=== PATIENT | female | born 1970 | race Caucasian/White ===

== ENCOUNTER 2017-01-13 13:30 | Observation (INO) | payer MEDICAID, OTHER ==
[2017-01-13] VITALS (8 sets, daily range): BP systolic 110–123; BP diastolic 63–78; PULSE 59–65; RESP 16–20; TEMP 98.1–98.6; O2SAT 97–99
[~2017-01-13] VITALS: Ht 165.1 cm; Wt 76.3 kg
[~2017-01-13 13:30] MED LIST: COUM10TA PO; NAPR500 PO
[2017-01-13] MEDS ORDERED: SODIUM CHLORIDE 0.9% FLUSH 5 ML FLUSH IVF PRN ×2 (14:45→17:30)
[2017-01-13] MEDS ORDERED: SODIUM CHLORID 0.9% 500 ML INJ 500 ML IV ONE (14:45)
--- NOTE | 2017-01-13 14:53 | PD ---
HPI Chief Complaint: Musculoskeletal Complaint Time Seen by Provider: 14:21 Travel History International Travel<30 days: No Contact w/Intl Traveler<30days: No Traveled to known affect area: No History of Present Illness HPI Patient is a 46-year-old female with history of multiple PEs, history of third- degree heart block with a pacemaker in place, presents to emergency room with complaints of chest pain as well as left-sided rib pain and shortness of breath. Patient reports that for the past week, she has had increased pains to the left side of her ribs. Reports that she has SOB with her symptoms and reports that pain radiates to the front of her chest. Reports that her symptoms are similar to when she was diagnosed with pulmonary embolism in the past. Reports that she has also been having chest pain, reports that she is having sharp stabbing pain to left side of her breast. Patient reports "i think that i have a pulmonary embolis" Patient reports that she is supposed to be taking coumadin as she has had 3 pe's in the past (last PE was diagnosed 1.5 years ago). Patient reports that she stopped taking her Coumadin as it is made from "rat poisen and i'm afraid of it." Patient currently reports that she does not have a primary care doctor or manager asset management in this area, reports that she is visiting from [place] (lives in [facility] now), she previously saw Dr. Eduardo in the past whom she absolutely loved. Reports that she knows that she has to find a manager asset management to follow up with. PFSH Past Medical History Anemia: Yes Arthritis: Yes Asthma: No Autoimmune Disease: No Blood Disorders: Yes (PE) Anxiety: Yes Depression: No Heart Rhythm Problems: Yes Cancer: No Cardiac Catheterization: Yes Cardiovascular Problems: Yes (PACER) High Cholesterol: Yes (NEVER DIAGNOSED) Chemotherapy: No Chest Pain: Yes Congestive Heart Failure: No COPD: No Diabetes: No Diminished Hearing: No Endocrine: Yes Gastrointestinal Disorders: Yes (BLOODY STOOLS; ACID REFLUX ) GERD: Yes Genitourinary: No Headaches: Yes Hepatitis: No Hiatal Hernia: No Hypertension: No Immune Disorder: No Implanted Vascular Access Dvce: Yes (PACEMAKER) Kidney Stones: No Medical other: Yes (BLOOD CLOTTING DISORDER (MULTIPLE EPISODES) ) Musculoskeletal: Yes (LOW BACK & NECK PAIN ) Neurologic: No Psychiatric: Yes (ANXIETY & DEPRESSION ) Reproductive: No Respiratory: Yes (ASTHMA) Immunizations Current: Yes Migraines: Yes Myocardial Infarction: Yes (X 2) Radiation Therapy: No Renal Failure: No Sleep Apnea: Yes Thyroid Disease: Yes Ulcer: No ?: Not LMP: MAGGIE Menopausal: Yes : 8 Para: 5 Miscarriage: 0 : 3 Tubal Ligation: Yes Past Surgical History Abdominal Surgery: No AICD: No Arteriovenous Shunt: No Body Medical Devices: PACEMAKER Cardiac Surgery: Yes (PACEMAKER X 3, 3RD DEGREE HEART BLOCK, HEART SURGERYX5) Section: Yes (X 1) Ear Surgery: No Endocrine Surgery: No Eye Surgery: No Genitourinary Surgery: Yes Gynecologic Surgery: Yes () Insulin Pump: No Joint Replacement: No Neurologic Surgery: No Oral Surgery: No Pacemaker: Yes Thoracic Surgery: No Other Surgery: Yes Social History Alcohol Use: Yes (3X WEEKLY) Tobacco Use: No Substance Use: Yes (SANDRA ) Allergies-Medications (Allergen,Severity, Reaction): Coded Allergies: No Known Allergies (Unverified , 01/13/17) Reported Meds & Prescriptions Reported Meds & Active Scripts Active No Active Prescriptions or Reported Medications Physical Exam Narrative GENERAL: nad, nontoxic SKIN: Warm and dry. HEAD: Atraumatic. Normocephalic. EYES: Pupils equal and round. No scleral icterus. No injection or drainage. ENT: No nasal bleeding or discharge. Mucous membranes pink and moist. NECK: Trachea midline. No JVD. CARDIOVASCULAR: Regular rate and rhythm. No murmur appreciated. RESPIRATORY: No accessory muscle use. Clear to auscultation. Breath sounds equal bilaterally. GASTROINTESTINAL: Abdomen soft, non-tender, nondistended. Hepatic and splenic margins not palpable. MUSCULOSKELETAL: No obvious deformities. No clubbing. No cyanosis. No edema. NEUROLOGICAL: Awake and alert. No obvious cranial nerve deficits. Motor grossly within normal limits. Normal speech. PSYCHIATRIC: Appropriate mood and affect; insight and judgment normal. Data Data Last Documented VS Vital Signs Date Time Temp Pulse Resp B/P Pulse Ox O2 Delivery O2 Flow Rate FiO2 01/13/17 13:55 18 99 Room Air 01/13/17 13:55 60 01/13/17 13:41 98.6 116/63 Orders Electrocardiogram (01/13/17 14:40) B-Type Natriuretic Peptide (01/13/17 14:40) Ckmb (Isoenzyme) Profile (01/13/17 14:40) Complete Blood Count With Diff (01/13/17 14:40) Comprehensive Metabolic Panel (01/13/17 14:40) Prothrombin Time / Inr (Pt) (01/13/17 14:40) Act Partial Throm Time (Ptt) (01/13/17 14:40) Troponin I (01/13/17 14:40) Chest, Single Ap (01/13/17 14:40) Ecg Monitoring (01/13/17 14:40) Iv Access Insert/Monitor (01/13/17 14:40) Oximetry (01/13/17 14:40) Sodium Chloride 0.9% Flush (Ns Flush) (01/13/17 14:45) Sodium Chlorid 0.9% 500 Ml Inj (Ns 500 M (01/13/17 14:45) Ct Pulmonary Angiogram (01/13/17 14:40) Ed Urine Pregnancytest Poc (01/13/17 14:40) Labs Laboratory Tests Test 01/13/17 14:25 White Blood Count 6.4 TH/MM3 Red Blood Count 4.34 MIL/MM3 Hemoglobin 13.1 GM/DL Hematocrit 39.9 % Mean Corpuscular Volume 92.0 FL Mean Corpuscular Hemoglobin 30.1 PG Mean Corpuscular Hemoglobin 32.7 % Concent Red Cell Distribution Width 13.9 % Platelet Count 255 TH/MM3 Mean Platelet Volume 8.9 FL Neutrophils (%) (Auto) 59.6 % Lymphocytes (%) (Auto) 30.3 % Monocytes (%) (Auto) 6.7 % Eosinophils (%) (Auto) 2.8 % Basophils (%) (Auto) 0.6 % Neutrophils # (Auto) 3.8 TH/MM3 Lymphocytes # (Auto) 2.0 TH/MM3 Monocytes # (Auto) 0.4 TH/MM3 Eosinophils # (Auto) 0.2 TH/MM3 Basophils # (Auto) 0.0 TH/MM3 CBC Comment DIFF FINAL Differential Comment Prothrombin Time 10.5 SEC Prothromb Time International 1.0 RATIO Ratio Activated Partial 25.7 SEC Thromboplast Time Sodium Level 139 MEQ/L Potassium Level 4.1 MEQ/L Chloride Level 104 MEQ/L Carbon Dioxide Level 28.2 MEQ/L Anion Gap 7 MEQ/L Blood Urea Nitrogen 14 MG/DL Creatinine 0.64 MG/DL Estimat Glomerular Filtration 99 ML/MIN Rate Random Glucose 92 MG/DL Calcium Level 8.8 MG/DL Total Bilirubin 0.9 MG/DL Aspartate Amino Transf 14 U/L (AST/SGOT) Alanine Aminotransferase 15 U/L (ALT/SGPT) Total Protein 7.5 GM/DL Albumin 3.6 GM/DL MDM Medical Decision Making Medical Screen Exam Complete: Yes Emergency Medical Condition: Yes Interpretation(s) ekg at 1452: av paced at 60bpm, qt/qtc: 472/472 Vital Signs Date Time Temp Pulse Resp B/P Pulse Ox O2 Delivery O2 Flow Rate FiO2 01/13/17 13:55 60 18 01/13/17 13:41 98.6 63 16 116/63 99 Differential Diagnosis ACS, arrhythmia, PE, electrolyte abnormality, pneumothorax Narrative Course Patient is a 46-year-old female who presents to emergency room with complaints of left-sided rib pain or shortness of breath for the past week. Patient reports that she has history of multiple pulmonary emboli, that she is supposed to be on anticoagulation - warfarin specifically-reports that she stop this medication 6 months ago as she found out that was made out of rat poisoning. Patient reports that she did not inform her primary care doctor or manager asset management about this, she just stopped this on her own. Reports that her symptoms feel very similar to when she's had a pulmonary embolism in the past. Patient is concerned that she may have a PE given her history and given the fact that she is not on anticoagulation - PE study ordered. Patient also with pleuritic chest pain at this time, EKG ordered. Scripts No Active Prescriptions or Reported Meds Pia Cruz DO Jan 13, 2017 14:53
[2017-01-13 14:58] LABS: AUTOMATED NEUTROPHIL # 3.8 TH/MM3 (1.8-7.7); BASOPHIL % 0.6 % (0.0-2.0); EOSINOPHIL # 0.2 TH/MM3 (0-0.4); EOSINOPHIL % 2.8 % (0.0-4.0); HEMATOCRIT 39.9 % (35.0-46.0); HEMO FLAGS DIFF FINAL; LYMPH % 30.3 % (9.0-44.0); MEAN CORPUSCULAR HEMOGLOBIN 30.1 PG (27.0-34.0); MEAN CORPUSCULAR HGB CONC 32.7 % (32.0-36.0); MONO % 6.7 % (0.0-8.0); NEUT % 59.6 % (16.0-70.0); PLATELET COUNT 255 TH/MM3 (150-450); RED BLOOD COUNT 4.34 MIL/MM3 (4.00-5.30); RED CELL DISTRIBUTION WIDTH 13.9 % (11.6-17.2); WHITE BLOOD COUNT 6.4 TH/MM3 (4.0-11.0)
[2017-01-13 15:09] LABS: CHLORIDE 104 MEQ/L (98-107); POTASSIUM 4.1 MEQ/L (3.5-5.1); SODIUM (NA) 139 MEQ/L (136-145)
[2017-01-13 15:13] LABS: ANION GAP 7 MEQ/L (5-15); APTT (PATIENT) 25.7 SEC (24.3-30.1); BICARBONATE 28.2 MEQ/L (21.0-32.0); BLOOD UREA NITROGEN 14 MG/DL (7-18); PROTHROMBIN TIME - PATIENT 10.5 SEC (9.8-11.6)
[2017-01-13 15:16] LABS: ALT (GPT) 15 U/L (10-53); AST (GOT) 14 U/L (15-37); GLOMERULAR FILTRATION RATE 99 ML/MIN (>89)
[2017-01-13 15:18] LABS: TOTAL BILIRUBIN ADULT 0.9 MG/DL (0.2-1.0)
[2017-01-13 15:19] LABS: ALKALINE PHOSPHATASE 78 U/L (45-117)
[2017-01-13 15:24] LABS: CREATINE KINASE 67 U/L (26-192)
--- NOTE | 2017-01-13 15:29 | RADHPO ---
EXAM DATE/TIME: 01/13/2017 15:09 [facility] COMPARISON: CHEST SINGLE AP, April 13, 2015, 1:13. INDICATIONS : Chest pain. MEDICAL HISTORY : None. SURGICAL HISTORY : Pacemaker. ENCOUNTER: Initial ACUITY: 1 week PAIN SCORE: 4/10 LOCATION: Bilateral chest FINDINGS: A single view of the chest demonstrates the lungs to be symmetrically aerated without evidence of mas s, infiltrate or effusion. The cardiomediastinal contours are unremarkable. The left subclavian AV s equential transvenous pacer remains in place. Osseous structures are intact. CONCLUSION: No acute disease. Celestine Christian MD on January 13, 2017 at 15:27 Board Certified Radiologist. This report was verified electronically.
[2017-01-13] MEDS ORDERED: IOHEXOL 350 MG/ML 10 ML VIAL (for RAD DIAG) IV ONE (16:33)
--- NOTE | 2017-01-13 16:52 | RADHPO ---
EXAM DATE/TIME: 01/13/2017 16:17 [facility] COMPARISON: CT PULMONARY ANGIOGRAM, July 19, 2014, 10:47. INDICATIONS : Shortness of breath, dizziness for three days. IV CONTRAST: 65 cc Omnipaque 350 IV RADIATION DOSE: 10.26 CTDIvol (mGy) MEDICAL HISTORY : Myocardial infarction. Pulmonary embolism. SURGICAL HISTORY : Tubal ligation. Pacemaker. ENCOUNTER: Initial ACUITY: 3 days PAIN SCALE: 10/10 LOCATION: Bilateral chest TECHNIQUE: Volumetric scanning of the chest was performed using a pulmonary embolism protocol MIP images were re constructed. Using automated exposure control and adjustment of the mA and/or kV according to patien t size, radiation dose was kept as low as reasonably achievable to obtain optimal diagnostic quality images. FINDINGS: PULMONARY ARTERIES: No filling defects are seen in the pulmonary arteries through the segmental level. LUNGS: There is no consolidation or pneumothorax . No concerning pulmonary nodule is visualized. There is m ild scarring in the right lung base. PLEURAE: There is no pleural thickening or pleural effusion. MEDIASTINUM: There is good visualization of the great vessels of the middle mediastinum. No evidence of mediastin al or hilar adenopathy/mass. MUSCULOSKELETAL: Within normal limits for patient age. MISCELLANEOUS: The visualized upper abdominal organs demonstrate no acute abnormality. A left transvenous pacer is n oted. CONCLUSION: 1. No evidence of pulmonary embolism. 2. Mild scarring at the right lung base. Celestine Christian MD on January 13, 2017 at 16:49 Board Certified Radiologist. This report was verified electronically.
[2017-01-13] MEDS ORDERED: ONDANSETRON HCL 4 MG/2 ML VIAL IV PUSH ONE (17:00)
--- NOTE | 2017-01-13 17:14 | PD ---
Data Data Last Documented VS Vital Signs Date Time Temp Pulse Resp B/P Pulse Ox O2 Delivery O2 Flow Rate FiO2 01/13/17 16:14 60 18 110/65 97 Room Air 01/13/17 13:41 98.6 Orders Electrocardiogram (01/13/17 14:40) B-Type Natriuretic Peptide (01/13/17 14:40) Ckmb (Isoenzyme) Profile (01/13/17 14:40) Complete Blood Count With Diff (01/13/17 14:40) Comprehensive Metabolic Panel (01/13/17 14:40) Prothrombin Time / Inr (Pt) (01/13/17 14:40) Act Partial Throm Time (Ptt) (01/13/17 14:40) Troponin I (01/13/17 14:40) Chest, Single Ap (01/13/17 14:40) Ecg Monitoring (01/13/17 14:40) Iv Access Insert/Monitor (01/13/17 14:40) Oximetry (01/13/17 14:40) Sodium Chloride 0.9% Flush (Ns Flush) (01/13/17 14:45) Sodium Chlorid 0.9% 500 Ml Inj (Ns 500 M (01/13/17 14:45) Ct Pulmonary Angiogram (01/13/17 14:40) Iohexol 350 Inj (Omnipaque 350 Inj) (01/13/17 16:33) Ondansetron Inj (Zofran Inj) (01/13/17 17:00) Salicylates (Aspirin) (01/13/17 17:07) Place In Observation (01/13/17 17:22) Activity Bed Rest With Brp (01/13/17 17:22) Vital Signs (Adult) Q4H (01/13/17 17:22) Cardiac Rhythm .As Directed (01/13/17 17:22) ^ Notify Dr: Other .PRN (01/13/17 17:22) ^ Notify Dr. Parameters (01/13/17 17:22) Resp Oxygen Nasal Cannula (01/13/17 ) Diet Heart Healthy (01/13/17 Dinner) Ckmb (Isoenzyme) Profile (01/13/17 17:30) Ckmb (Isoenzyme) Profile (01/13/17 20:30) Troponin I (01/13/17 17:30) Troponin I (01/13/17 20:30) Electrocardiogram (01/13/17 17:30) Electrocardiogram (01/13/17 20:30) ^ Obtain (01/13/17 17:22) Sodium Chloride 0.9% Flush (Ns Flush) (01/13/17 17:30) Sodium Chloride 0.9% Flush (Ns Flush) (01/13/17 21:00) Acetaminophen (Tylenol) (01/13/17 17:30) Acetamin-Hydrocod 325-7.5 Mg ([place] 7.5 (01/13/17 17:30) Morphine Inj (Morphine Inj) (01/13/17 17:30) Ondansetron Inj (Zofran Inj) (01/13/17 17:30) Nitroglycerin Sl (Nitrostat Sl) (01/13/17 17:30) Aspirin (Aspirin) (01/14/17 09:00) Temazepam (Restoril) (01/13/17 17:30) Industrial Electrician Journeyman / Telemetry JACKELINE.Q8H (01/13/17 17:22) Enoxaparin Inj (Lovenox Inj) (01/13/17 18:00) Npo After Midnight W/ Po Meds (01/14/17 Breakfast) Admit Order (Ed Use Only) (01/13/17 ) Labs Laboratory Tests Test 01/13/17 01/13/17 14:25 17:33 White Blood Count 6.4 TH/MM3 Red Blood Count 4.34 MIL/MM3 Hemoglobin 13.1 GM/DL Hematocrit 39.9 % Mean Corpuscular Volume 92.0 FL Mean Corpuscular Hemoglobin 30.1 PG Mean Corpuscular Hemoglobin 32.7 % Concent Red Cell Distribution Width 13.9 % Platelet Count 255 TH/MM3 Mean Platelet Volume 8.9 FL Neutrophils (%) (Auto) 59.6 % Lymphocytes (%) (Auto) 30.3 % Monocytes (%) (Auto) 6.7 % Eosinophils (%) (Auto) 2.8 % Basophils (%) (Auto) 0.6 % Neutrophils # (Auto) 3.8 TH/MM3 Lymphocytes # (Auto) 2.0 TH/MM3 Monocytes # (Auto) 0.4 TH/MM3 Eosinophils # (Auto) 0.2 TH/MM3 Basophils # (Auto) 0.0 TH/MM3 CBC Comment DIFF FINAL Differential Comment Prothrombin Time 10.5 SEC Prothromb Time International 1.0 RATIO Ratio Activated Partial 25.7 SEC Thromboplast Time Sodium Level 139 MEQ/L Potassium Level 4.1 MEQ/L Chloride Level 104 MEQ/L Carbon Dioxide Level 28.2 MEQ/L Anion Gap 7 MEQ/L Blood Urea Nitrogen 14 MG/DL Creatinine 0.64 MG/DL Estimat Glomerular Filtration 99 ML/MIN Rate Random Glucose 92 MG/DL Calcium Level 8.8 MG/DL Total Bilirubin 0.9 MG/DL Aspartate Amino Transf 14 U/L (AST/SGOT) Alanine Aminotransferase 15 U/L (ALT/SGPT) Alkaline Phosphatase 78 U/L Total Creatine Kinase 67 U/L Troponin I 0.02 NG/ML B-Type Natriuretic Peptide 107 PG/ML Total Protein 7.5 GM/DL Albumin 3.6 GM/DL Salicylates Level LESS THAN 1.7 MG/DL MDM Supervised Visit with PRATIBHA: No Interpretation(s) EKG shows atrial and ventricular paced rhythm. Narrative Course Patient care assumed from Dr. Cruz at 1900, this is a 38-year-old female with a history of recurrent PEs, third-degree heart block with an AV pacemaker in place as well as NE in the past presents emergency Department with left-sided chest pain now radiating to her back with some mild nauseating symptoms. Patient has not followed a photo finish photographer for some time, she has not had a stress test or cardiac catheterization in many years according to her. Patient states that her symptoms are worsened when she pushes on it. After discussed with Dr. Cruz we were awaiting a PE study and if negative plan was for chest pain center. Patient's CT PE protocol is negative, troponin negative, patient seen and examined by me she does have no reproducible symptoms for me. Pulses motor and sensory intact in all 4 extremities, no murmurs gallops or rubs. EKG reviewed and does show an AV paced rhythm. Awaiting [facility] call back for admission. Diagnosis Primary Impression: Chest pain Qualified Code: R07.9 - Chest pain, unspecified type Admitting Information Admitting Physician Requests: Observation Scripts No Active Prescriptions or Reported Meds Condition: Stable Ismael Wright MD Jan 13, 2017 17:14
[2017-01-13] MEDS ORDERED: ONDANSETRON HCL 4 MG/2 ML VIAL IV PRN (17:30)
[2017-01-13] MEDS ORDERED: MORPHINE SULFATE 4 MG/ML INJ IV PRN (17:30)
[2017-01-13] MEDS ORDERED: TEMAZEPAM 15 MG CAP PO PRN (17:30)
[2017-01-13] MEDS ORDERED: NITROGLYCERIN 0.4 MG SL 25 TABS/BTL SL PRN (17:30)
[2017-01-13] MEDS ORDERED: ACETAMINOPHEN 500 MG CPLT PO PRN (17:30)
[2017-01-13] MEDS ORDERED: ACETAMINOPHEN/HYDROcodone 325 MG/7.5 MG TAB PO PRN (17:30)
[2017-01-13] MEDS ORDERED: ENOXAPARIN SODIUM 40 MG/0.4 ML SYRINGE SQ SCH (18:00)
[2017-01-13] MEDS: SODIUM CHLORIDE 0.9% FLUSH 5 ML FLUSH IVF SCH (22:26)
[2017-01-14] VITALS: BP 120/82; PULSE 61; RESP 20; TEMP 96; O2SAT 98
[2017-01-14 04:00] VITALS: BP 103/67; PULSE 60; RESP 20; TEMP 96.2; O2SAT 100
[2017-01-14 07:05] VITALS: PULSE 59
--- NOTE | 2017-01-14 07:22 | HHI.HP ---
[facility] Service [facility] Primary Care Physician No Primary Care Physician Admission Diagnosis Chest pain. Diagnoses: (1) Chest pain Diagnosis: Principal (2) History of third degree heart block Diagnosis: Secondary (3) History of myocardial infarction Diagnosis: Secondary (4) History of pulmonary embolism Diagnosis: Secondary (5) Hypothyroidism Diagnosis: Secondary Chief Complaint: Chest pain Travel History International Travel<30 Days: No Contact w/Intl Traveler <30 Da: No Traveled to Known Affected Are: No History of Present Illness 46-year-old female with rather complex cardiac history with history of myocardial infarction, cardiac catheterizations, third-degree heart block with pacemaker, history of recurrent pulmonary emboli who presented with atypical chest/left lateral rib pain. Patient presented to the hospital with few day history of constant pain in her left lateral rib cage. She denies any radiation to neck, back, shoulder, arms. She denies any nausea, vomiting. She states that she does get some pain on inspiration in the left lateral ribs. She states that she has had some increased sweating at night, not associated with the chest pain. Patient has not followed up with any medical doctor at least a year and a half. Patient has moved to [place] and returned to [place] to clean out her storage unit which she has been doing for the last couple weeks. She has been doing some increased physical activity and developed pain in her left lateral ribs. Patient used to follow with Dr. Jordan, for cardiology and pulmonary emboli, however she quit taking the Coumadin because it was rat poison. She has not been on any anticoagulation at least 1-1 /2 years. She is not taking any thyroid medication because she has not had any refills. She has not followed up with any physician in [place]. She states that she does have [place] insurance at this time. She plans on being here in [place] until at least February and then she plans on going back to [place]. Review of Systems Constitutional: COMPLAINS OF: Diaphoretic episodes (at night, not associated with chest pain), DENIES: Fatigue, Fever, Weight gain, Weight loss, Chills, Dizziness, Change in appetite, Night Sweats Eyes: DENIES: Blurred vision, Diplopia, Eye inflammation, Eye pain, Vision loss , Double Vision Ears, nose, mouth, throat: DENIES: Vertigo, Nasal discharge, Throat pain, Ear Pain, Running Nose, Sinus Pain Respiratory: COMPLAINS OF: Shortness of breath, DENIES: Apneas, Cough, Snoring , Wheezing, Hemoptysis, Sputum production Cardiovascular: COMPLAINS OF: Chest pain, DENIES: Palpitations, Syncope, Dyspnea on Exertion, Lower Extremity Edema, Orthopnea Gastrointestinal: DENIES: Abdominal pain, Black stools, Bloody stools, Constipation, Diarrhea, Nausea, Vomiting, Difficulty Swallowing, Anorexia Neurologic: DENIES: Abnormal gait, Headache, Localized weakness, Paresthesias, Speech Problems, Tremor, Poor Balance Past Family Social History Past Medical History History myocardial infarction in sinus third-degree heart block Hypothyroidism History of recurrent pulmonary emboli History DVT upper extremity Past Surgical History Pacemaker 3 Cardiac catheterization Tubal ligation Reported Medications Reported Meds & Active Scripts Active No Active Prescriptions or Reported Medications Allergies: Coded Allergies: *MDRO Multi-Drug Resistant Organism (Verified Adverse Reaction, Unknown, MRSA, 01/14/17) MRSA (thigh wound) - 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/05 Family History Significant for heart disease and diabetes Social History Patient states that she has never smoked, does drink alcohol occasionally, denies any illicit drugs Physical Exam Vital Signs Vital Signs Date Time Temp Pulse Resp B/P Pulse Ox O2 Delivery O2 Flow Rate FiO2 01/14/17 04:00 96.2 60 20 103/67 100 01/14/17 00:00 96.0 61 20 120/82 98 01/13/17 20:00 98.1 65 20 114/72 97 01/13/17 19:44 97 01/13/17 17:59 97 21 01/13/17 17:45 59 16 123/78 97 Room Air 01/13/17 16:14 60 18 110/65 97 Room Air 01/13/17 15:05 61 18 115/68 97 Room Air 01/13/17 13:55 18 99 Room Air 01/13/17 13:55 60 18 01/13/17 13:41 98.6 63 16 116/63 99 Physical Exam GENERAL: Well-developed, well-nourished, in no acute distress. alert and orientated HEENT: Head is normocephalic without any lesions or masses noted. Facial features are symmetric. Eyes: Pupils equal round reactive to light. Extraocular muscles are intact. Conjunctivae were clear. Oropharyngeal: Pharynx without any erythema edema. Tongue is midline without deviation. Buccal mucosa is moist without any masses or lesions NECK: Supple without any masses. Trachea midline no deviation. No JVD, no bruits are appreciated CARDIAC: Regular rhythm, regular rate. S1/S2 are heard. No murmurs gallops or rubs. Palpable tenderness noted over left lateral rib cage LUNGS: Clear to auscultation bilaterally. No wheeze, rhonchi or rales. No use of accessory muscles on inspiration or expiration. ABDOMEN: Soft, nontender. Nondistended. Bowel sounds heard in all 4 quadrants. No organomegaly or masses. Negative rebound, negative guarding EXTREMITIES: No edema, pulses are equal bilaterally. No cyanosis or clubbing NEUROLOGY: Mood and affect appear appropriate. Cranial nerves II through XII grossly intact. Muscle strength 5/5 in upper and lower extremities bilaterally. Deep tendon reflexes are 2+ in upper and lower extremities bilaterally. Laboratory Laboratory Tests Test 01/13/17 01/13/17 01/13/17 01/13/17 14:25 17:33 17:48 20:55 White Blood Count 6.4 Red Blood Count 4.34 Hemoglobin 13.1 Hematocrit 39.9 Mean Corpuscular Volume 92.0 Mean Corpuscular Hemoglobin 30.1 Mean Corpuscular Hemoglobin 32.7 Concent Red Cell Distribution Width 13.9 Platelet Count 255 Mean Platelet Volume 8.9 Neutrophils (%) (Auto) 59.6 Lymphocytes (%) (Auto) 30.3 Monocytes (%) (Auto) 6.7 Eosinophils (%) (Auto) 2.8 Basophils (%) (Auto) 0.6 Neutrophils # (Auto) 3.8 Lymphocytes # (Auto) 2.0 Monocytes # (Auto) 0.4 Eosinophils # (Auto) 0.2 Basophils # (Auto) 0.0 CBC Comment DIFF FINAL Differential Comment Prothrombin Time 10.5 Prothromb Time International 1.0 Ratio Activated Partial 25.7 Thromboplast Time Sodium Level 139 Potassium Level 4.1 Chloride Level 104 Carbon Dioxide Level 28.2 Anion Gap 7 Blood Urea Nitrogen 14 Creatinine 0.64 Estimat Glomerular Filtration 99 Rate Random Glucose 92 Calcium Level 8.8 Total Bilirubin 0.9 Aspartate Amino Transf 14 (AST/SGOT) Alanine Aminotransferase 15 (ALT/SGPT) Alkaline Phosphatase 78 Total Creatine Kinase 67 51 49 Troponin I 0.02 0.03 0.03 B-Type Natriuretic Peptide 107 Total Protein 7.5 Albumin 3.6 Salicylates Level LESS THAN 1.7 Result Diagram: 01/13/17 1425 01/13/17 1425 Imaging Last Impressions Chest X-Ray 01/13/17 1440 Signed Impressions: Service Date/Time: Friday, January 13, 2017 15:09 - CONCLUSION: No acute disease. Celestine Christian MD CT Angiography 01/13/17 1440 Signed Impressions: Service Date/Time: Friday, January 13, 2017 16:17 - CONCLUSION: 1. No evidence of pulmonary embolism. 2. Mild scarring at the right lung base. Celestine Christian MD Assessment and Plan Assessment and Plan Atypical chest pain. Likely costochondritis/intercostitis of the left lateral rib cage Patient does have risk factors to include history of myocardial infarction, complete heart block, recurrent pulmonary emboli, family history of heart disease. Serial cardiac enzymes were performed and reviewed by us of which remained negative. Patient ruled out for an acute coronary event Serial EKGs were performed and reviewed by myself which indicate AV sequential pacemaker rhythm without any changes Obtain urinalysis to rule out urinary tract infection/pyelonephritis Nuclear stress test was performed and did not indicate any underlying ischemia Continue aspirin and nitroglycerin as needed History of Recurrent pulmonary emboli, upper extremity DVT. Pulmonary angiogram does not indicate any pulmonary emboli at this time Patient is not on any anticoagulation next linecounseled patient on anticoagulation. We'll start patient on Xarelto. Coupon was given to obtain 30 days free. Hypothyroidism TSH 8.61 Patient is not on any replacement therapy at this time Restart replacement therapy levothyroxine 25 g daily Patient will need outpatient follow-up. Case management consulted and arranging patient care assistance, follow up with Dr. Banks DVT prevention: Sequential compression devices Written by Ravi Maya PA-C, acting as scribe for Dr. Cassidy on 01/14/17 at 1340. The documentation accurately reflects the work and decisions performed face-to- face by Dr. Cassidy on 01/14/17 at 1340. Discharge disposition Discharge home in stable condition Activity: Ad aide. Diet: Healthy heart diet Medications per medication reconciliation, immigration case manager consulted to arrange patient had a blue card for prescription assistance, Xarelto coupon was given to patient to obtain 30 days free. Follow-up primary medical doctor in one week, case management to arrange appointment with Dr. Banks Problem Qualifiers (1) Chest pain: Qualified Code: R07.9 - Chest pain, unspecified type (2) Hypothyroidism: Qualified Code: E03.9 - Hypothyroidism, unspecified type Ravi Maya Jan 14, 2017 07:22
[2017-01-14 08:00] VITALS: BP 105/81; PULSE 61; RESP 18; TEMP 96.1; O2SAT 100
[2017-01-14] MEDS: SODIUM CHLORIDE 0.9% FLUSH 5 ML FLUSH IVF SCH (08:18)
--- NOTE | 2017-01-14 08:40 | EKG ---
Date Performed: 01/13/2017 Time Performed: 20:50:28 PTAGE: 46 years EKG: A-V sequential pacemaker Pacemaker rhythm - no further analysis Abnormal ECG PREVIOUS TRACING : 01/13/2017 17.35 DOCTOR: Yaw Ervin Interpretating Date/Time 01/14/2017 08:36:52
--- NOTE | 2017-01-14 08:46 | EKG ---
Date Performed: 01/13/2017 Time Performed: 17:35:18 PTAGE: 46 years EKG: A-V sequential pacemaker Pacemaker rhythm - no further analysis Abnormal ECG PREVIOUS TRACING : 01/13/2017 14.52 DOCTOR: Yaw Ervin Interpretating Date/Time 01/14/2017 08:41:57
--- NOTE | 2017-01-14 08:51 | EKG ---
Date Performed: 01/13/2017 Time Performed: 14:52:48 PTAGE: 46 years EKG: A-V sequential pacemaker Pacemaker rhythm - no further analysis Abnormal ECG PREVIOUS TRACING : 04/13/2015 01.07 DOCTOR: Yaw Ervin Interpretating Date/Time 01/14/2017 08:45:37
[2017-01-14] MEDS ORDERED: ASPIRIN 325 MG TAB PO SCH (09:00)
[2017-01-14 10:00] VITALS: O2SAT 98
[2017-01-14] MEDS ORDERED: REGADENOSON INJ 0.4 MG/5 ML SYR IV ONE (11:20)
[2017-01-14 12:00] VITALS: BP 121/79; PULSE 59; RESP 18; TEMP 97.3; O2SAT 98
--- NOTE | 2017-01-14 12:40 | RADHPO ---
EXAM DATE/TIME: 01/14/2017 11:22 [facility] COMPARISON: CT PULMONARY ANGIOGRAM, January 13, 2017, 16:17. MYOCARDIAL PERF PHARM SPECT, GATED W/EF, June, 13:08. INDICATIONS : Chest pain for 1 day. Cardiac cath, third degree heart block, pacemaker and asthma. Angina. Myocardia l infarction. DOSE: 25.8 mCi Tc99m Myoview at stress. 8.1 mCi Tc99m Myoview at rest. 0.4 mg Lexiscan STRESS SYMPTOMS: Full body pressure and shortness of breath. EJECTION FRACTION: 61% MEDICAL HISTORY : Hypertension. SURGICAL HISTORY : Pacemaker. section. Tubal ligation. ENCOUNTER: Initial ACUITY: 1 day PAIN SCALE: 3/10 LOCATION: Bilateral chest TECHNIQUE: The patient underwent pharmacologic stress with infusion of prescribed dose. Continuous ECG tracing was monitored during stress. Gated SPECT imaging was performed after stress and conventional SPECT i maging was performed at rest. The examination was performed on a SPECT/CT scanner, both attenuation and non-corrected datasets were reviewed. FINDINGS: DISTRIBUTION: The maximum perfused segment at stress is in the septal wall. PERFUSION STUDY: The pattern of perfusion at stress is within normal limits. The inferior wall is partially obscured b y gut activity. GATED STUDY: There is intact wall motion and thickening without hypokinetic or dyskinetic segments. CONCLUSION: 1. No reversible perfusion defect to suggest stress-induced myocardial ischemia. RISK CATEGORY: Low (<1% Annual Mortality Rate) Jose Antonio Suárez MD on January 14, 2017 at 12:36 Board Certified Radiologist. This report was verified electronically.
[2017-01-14] MEDS ORDERED: XARE20TA PO (13:05)
[2017-01-14] MEDS ORDERED: LEVO25TA4 PO (13:05)
--- NOTE | 2017-01-14 13:05 | HHI.DCPOC ---
Discharge Care Plan Diagnosis: (1) Chest pain Your Health Problems Are: Chest Pain Goals to Promote Your Health * To prevent worsening of your condition and complications * To maintain your health at the optimal level Directions to Meet Your Goals Take your medications as prescribed Follow your dietary instruction Follow activity as directed Keep your appointments as scheduled Take your immunizations and boosters as scheduled If your symptoms worsen call your PCP, if no PCP go to Urgent Care Center or Emergency Room Smoking is Dangerous to Your Health. Avoid second hand smoke Call the 24-hour hour crisis hotline for domestic abuse at Ravi Maya Jan 14, 2017 13:05
--- NOTE | 2017-01-15 17:10 | TR ---
Date Performed: 01/14/2017 Time Performed: 11:34:47 DOCTOR: Marco Antonio Kaur DRUG LIST: CLINICAL HISTORY: CHEST PAIN REASON FOR TEST: REASON FOR ENDING: OBSERVATION: CONCLUSION: Paced rhythm through test. Nuclear imaging pending COMMENTS:
== END 2017-01-14 15:00 | disposition home or self-care (01) ==
LOC: PHEFT 13:30 → PHEDA 17:33 → PH3B 18:21
PROVIDERS: ADMIT Family Medicine; ATTEND Family Medicine
DX: R07.9 Chest pain, unspecified (principal); E03.9 Hypothyroidism, unspecified; R94.31 Abnormal electrocardiogram [ECG] [EKG]; I25.2 Old myocardial infarction; G47.30 Sleep apnea, unspecified; J45.909 Unspecified asthma, uncomplicated; K21.9 Gastro-esophageal reflux disease without esophagitis; Z86.718 Personal history of other venous thrombosis and embolism; Z86.711 Personal history of pulmonary embolism; Z95.0 Presence of cardiac pacemaker; Z82.49 Family history of ischemic heart disease and other diseases of the circulatory system
CPT/HCPCS: 71010; 71275; 78452; 80053; 80329; 82550; 83880; 84443; 84484; 85025; 85610; 85730; 87641; 93005; 93017; 96360; 96361; 99285; A9502; G0378; J1650; J2785; J7040; Q9967; G0480

== ENCOUNTER 2017-01-25 17:11 | Emergency (ER) | payer OTHER ==
[~2017-01-25] VITALS: Ht 165.1 cm; Wt 68.2 kg
[~2017-01-25 17:11] MED LIST changes: -COUM10TA PO; +LEVO25TA4 PO; -NAPR500 PO; +XARE20TA PO
[2017-01-25 17:13] VITALS: BP 121/78; PULSE 74; RESP 15; TEMP 98.3; O2SAT 98
--- NOTE | 2017-01-25 18:41 | PD ---
HPI Chief Complaint: ENT Complaint Time Seen by Provider: 18:41 Travel History International Travel<30 days: No Contact w/Intl Traveler<30days: No Traveled to known affect area: No History of Present Illness HPI 46-year-old female presents to the emergency Department with complaint of nasal congestion, cough, sore throat that started this morning. Reports burning sensation in the back of her throat. Her main complaint is sore throat. Denies lump in throat, difficulty swallowing, unusual drooling. Reports painful swallowing. Denies fever, chills, nausea, vomiting. Has not taken any medications or tried any treatments to alleviate her symptoms. Her daughter is sick with similar symptoms. No known relieving factors. No other modifying factors or associated signs and symptoms. PFSH Past Medical History Anemia: Yes Arthritis: Yes Asthma: Yes Autoimmune Disease: No Blood Disorders: Yes (PE) Anxiety: Yes Depression: No Heart Rhythm Problems: Yes Cancer: No Cardiac Catheterization: Yes Cardiovascular Problems: Yes (PACER) High Cholesterol: Yes (NEVER DIAGNOSED) Chemotherapy: No Chest Pain: Yes Congestive Heart Failure: No COPD: No Diabetes: No Diminished Hearing: No Endocrine: Yes Gastrointestinal Disorders: Yes (BLOODY STOOLS; ACID REFLUX ) GERD: Yes Genitourinary: No Headaches: Yes Hepatitis: No Hiatal Hernia: No Hypertension: No Immune Disorder: No Implanted Vascular Access Dvce: Yes (PACEMAKER) Kidney Stones: No Medical other: Yes (BLOOD CLOTTING DISORDER (MULTIPLE EPISODES) ) Musculoskeletal: Yes (LOW BACK & NECK PAIN ) Neurologic: No Psychiatric: Yes (ANXIETY) Reproductive: No Respiratory: Yes (ASTHMA) Immunizations Current: Yes Migraines: Yes Myocardial Infarction: Yes (X 2) Radiation Therapy: No Renal Failure: No Sleep Apnea: Yes Thyroid Disease: Yes Ulcer: No Influenza Vaccination: No ?: Not Menopausal: Yes : 8 Para: 5 Miscarriage: 0 : 3 Tubal Ligation: Yes Past Surgical History Abdominal Surgery: No AICD: No Arteriovenous Shunt: No Body Medical Devices: PACEMAKER Cardiac Surgery: Yes (PACEMAKER X 3, 3RD DEGREE HEART BLOCK, HEART SURGERYX5) Section: Yes (X 1) Ear Surgery: No Endocrine Surgery: No Eye Surgery: No Genitourinary Surgery: Yes Gynecologic Surgery: Yes () Insulin Pump: No Joint Replacement: No Neurologic Surgery: No Oral Surgery: No Pacemaker: Yes Thoracic Surgery: No Other Surgery: Yes Social History Alcohol Use: Yes (3X WEEKLY) Tobacco Use: No Substance Use: Yes (KEILYMARTINSTUMPY POINT ) Allergies-Medications (Allergen,Severity, Reaction): Coded Allergies: *MDRO Multi-Drug Resistant Organism (Verified Adverse Reaction, Unknown, MRSA, 01/25/17) MRSA (thigh wound) - 06/20/05 Reported Meds & Prescriptions Reported Meds & Active Scripts Active Nasonex Nasal [place] (Mometasone Furoate) 50 Mcg/Act Naspr 2 [place] EACH NARE DAILY PRN Magic Mouthwash Pediatric/Adult Liq (Lidocaine/Diphenhydr/Alum/Mg/Simeth) 60 Ml Susp 5 Ml SWISH-SPIT Q3HR NEB PRN Each 5mL contains: Diphenydramine 4.5mg, Viscous Lidocaine 2% 10mg, Maalox Advanced Regular Strength 2.7ml Tessalon Perles (Benzonatate) 100 Mg Cap 100 Mg PO TID PRN Xarelto (Rivaroxaban) 20 Mg Tab 20 Mg PO DAILY 30 Days Levothyroxine (Levothyroxine Sodium) 25 Mcg Tab 25 Mcg PO DAILY Review of Systems Except as stated in HPI: all other systems reviewed are Neg Physical Exam Narrative GENERAL: Well-nourished, well-developed patient, in no acute distress; afebrile , nontoxic-appearing SKIN: Warm and dry. No rash. HEAD: Atraumatic. Normocephalic. EYES: Pupils equal and round at 3 mm with brisk reaction. No scleral icterus. No injection or drainage. PERRLA. ENT: Mucosa pink and moist. Oropharynx with erythema; without edema or exudates. No uvular edema. No uvular, palatal, or tonsillar deviation. Airway patent. Voice is hoarse. EARS: Bilateral pinnae and external canals appear within normal limits. Bilateral tympanic membranes without erythema, dullness or perforation. NECK: Trachea midline. No anterior cervical lymphadenopathy or tenderness on palpation. CARDIOVASCULAR: Regular rate and rhythm. No murmur appreciated. RESPIRATORY: No accessory muscle use. Clear to auscultation. Breath sounds equal bilaterally. GASTROINTESTINAL: Abdomen soft, non-tender, nondistended. Hepatic and splenic margins not palpable. Bowel sounds are active 4 quadrants. MUSCULOSKELETAL: No obvious deformities. No clubbing. No cyanosis. No edema. NEUROLOGICAL: Awake and alert. Oriented 3. No obvious cranial nerve deficits. Motor grossly within normal limits. Normal speech. Moves all extremities. 5/5 strength to all extremities. PSYCHIATRIC: Appropriate mood and affect; insight and judgment normal. Data Data Last Documented VS Vital Signs Date Time Temp Pulse Resp B/P Pulse Ox O2 Delivery O2 Flow Rate FiO2 01/25/17 17:13 98.3 74 15 121/78 98 Orders Group A Rapid Strep Screen (01/25/17 18:45) Strep Culture (Group A) (01/25/17 18:59) MDM Medical Decision Making Medical Screen Exam Complete: Yes Emergency Medical Condition: Yes Medical Record Reviewed: Yes Differential Diagnosis Viral pharyngitis, strep pharyngitis, viral illness, upper respiratory infection Narrative Course 46-year-old female physical exam consistent with viral illness. Patient is afebrile and nontoxic-appearing. She denies fever, chills, nausea, vomiting or home. Patient has sore throat and that is her main complaint. I discussed viral illness and symptomatic management patient patient is requesting rapid strep. Rapid strep ordered as negative. Nasonex, Tessalon Perles, Magic mouthwash prescribed for home. Patient is medically cleared and stable for discharge. Discussed reasons to return to the emergency department. Instructed patient to follow up with primary care provider. Patient agrees with treatment plan. The patients vital signs are stable and the patient is stable for outpatient follow-up and treatment. Patient discharged home, stable and in no acute distress. Diagnosis Primary Impression: Viral illness Referrals: Primary Care Physician Patient Instructions: Cold Symptoms (ED), General Instructions, Pharyngitis (ED ), Safe Use of Cough and Cold Medicines (ED) Additional Instructions: Get plenty of sleep/rest Rest your voice Drink plenty of fluids to prevent dehydration Use warm saltwater gargles to soothe throat pain Use an air humidifier/turn off ceiling fans Use throat lozenges as needed for sore throat Use ibuprofen or acetaminophen as needed to relieve pain and fever Follow-up with your primary care provider within 2-4 days Return immediately to the emergency department Med/Other Pt SpecificInfo: Prescription(s) given Scripts Mometasone Nasal [place] (Nasonex Nasal [place])50 Mcg/Act Naspr2 [place] EACH NARE DAILY PRN (NASAL CONGESTION) #1 BOTTLE Ref 0 Prov:Gladys Machado 01/25/17 [id number]-Simeth Liq (Magic Mouthwash Pediatric/Adult Liq)60 Ml Susp5 Ml SWISH-SPIT Q3HR NEB PRN (SORE THROAT) #60 ML Ref 0 Each 5mL contains: Diphenydramine 4.5mg, Viscous Lidocaine 2% 10mg, Maalox Advanced Regular Strength 2.7ml Prov:Gladys Machado 01/25/17 Benzonatate (Tessalon Perles)100 Mg [id number] Mg PO TID PRN (COUGH) #20 CAP Ref 0 Prov:Gladys Machado 01/25/17 Disposition: 01 DISCHARGE HOME Condition: Stable Gladys Machado Jan 25, 2017 18:41
[2017-01-25] MEDS ORDERED: MAGICPED SWISH-SPIT (18:43)
[2017-01-25] MEDS ORDERED: BENZ100 PO (18:43)
[2017-01-25] MEDS ORDERED: MOME17I EACH NARE (18:44)
== END 2017-01-25 20:18 | disposition home or self-care (01) ==
LOC: NEPB 17:11
DX: B34.9 Viral infection, unspecified (principal); J02.9 Acute pharyngitis, unspecified; E07.9 Disorder of thyroid, unspecified; G47.30 Sleep apnea, unspecified; I25.2 Old myocardial infarction; Z95.0 Presence of cardiac pacemaker; Z86.2 Personal history of diseases of the blood and blood-forming organs and certain disorders involving the immune mechanism; Z87.39 Personal history of other diseases of the musculoskeletal system and connective tissue; Z87.09 Personal history of other diseases of the respiratory system; Z86.59 Personal history of other mental and behavioral disorders; Z86.79 Personal history of other diseases of the circulatory system; Z87.19 Personal history of other diseases of the digestive system; Z86.69 Personal history of other diseases of the nervous system and sense organs
CPT/HCPCS: 87081; 87880; 99283

== ENCOUNTER 2017-02-04 22:46 | Emergency (ER) | payer OTHER ==
[~2017-02-04] VITALS: Ht 165.1 cm; Wt 73.3 kg
[~2017-02-04 22:46] MED LIST changes: +BENZ100 PO; +MAGICPED SWISH-SPIT; +MOME17I EACH NARE
[2017-02-04 22:55] VITALS: BP 122/89; PULSE 72; RESP 18; TEMP 98.6; O2SAT 97
[2017-02-04] MEDS ORDERED: AMOX500C PO (23:46)
--- NOTE | 2017-02-04 23:48 | PD ---
HPI Chief Complaint: Cold / Flu Symptoms Time Seen by Provider: 23:40 Travel History International Travel<30 days: No Contact w/Intl Traveler<30days: No Traveled to known affect area: No History of Present Illness HPI This 46-year-old female says she been sick for a couple of weeks. She's been coughing up a lot of phlegm. She's had a sore throat. She has noted that her glands are quite swollen. She has a history of myocardial infarction. She has a pacemaker in place. She does not smoke. She is having a lot of sinus congestion and pain PFSH Past Medical History Anemia: Yes Arthritis: Yes Asthma: Yes Autoimmune Disease: No Blood Disorders: Yes (PE) Anxiety: Yes Depression: No Heart Rhythm Problems: Yes Cancer: No Cardiac Catheterization: Yes Cardiovascular Problems: Yes (PACER) High Cholesterol: Yes (NEVER DIAGNOSED) Chemotherapy: No Chest Pain: Yes Congestive Heart Failure: No COPD: No Diabetes: No Diminished Hearing: No Endocrine: Yes Gastrointestinal Disorders: Yes (BLOODY STOOLS; ACID REFLUX ) GERD: Yes Genitourinary: No Headaches: Yes Hepatitis: No Hiatal Hernia: No Hypertension: No Immune Disorder: No Implanted Vascular Access Dvce: Yes (PACEMAKER) Kidney Stones: No Musculoskeletal: Yes (LOW BACK & NECK PAIN ) Neurologic: No Psychiatric: Yes (ANXIETY) Reproductive: No Respiratory: Yes (ASTHMA) Immunizations Current: Yes Migraines: Yes Myocardial Infarction: Yes (X 2) Radiation Therapy: No Renal Failure: No Sleep Apnea: Yes Thyroid Disease: Yes Ulcer: No Menopausal: Yes : 8 Para: 5 Miscarriage: 0 : 3 Tubal Ligation: Yes Past Surgical History Abdominal Surgery: No AICD: No Arteriovenous Shunt: No Body Medical Devices: PACEMAKER Cardiac Surgery: Yes (PACEMAKER X 3, 3RD DEGREE HEART BLOCK, HEART SURGERYX5) Section: Yes (X 1) Ear Surgery: No Endocrine Surgery: No Eye Surgery: No Genitourinary Surgery: Yes Gynecologic Surgery: Yes () Insulin Pump: No Joint Replacement: No Neurologic Surgery: No Oral Surgery: No Pacemaker: Yes Thoracic Surgery: No Other Surgery: Yes Social History Alcohol Use: Yes (3X WEEKLY) Tobacco Use: No [facility]: [facility] Allergies-Medications (Allergen,Severity, Reaction): Coded Allergies: *MDRO Multi-Drug Resistant Organism (Verified Adverse Reaction, Unknown, MRSA, 01/25/17) MRSA (thigh wound) - 06/20/05 Reported Meds & Prescriptions Reported Meds & Active Scripts Active Nasonex Nasal [place] (Mometasone Furoate) 50 Mcg/Act Naspr 2 [place] EACH NARE DAILY PRN Magic Mouthwash Pediatric/Adult Liq (Lidocaine/Diphenhydr/Alum/Mg/Simeth) 60 Ml Susp 5 Ml SWISH-SPIT Q3HR NEB PRN Each 5mL contains: Diphenydramine 4.5mg, Viscous Lidocaine 2% 10mg, Maalox Advanced Regular Strength 2.7ml Tessalon Perles (Benzonatate) 100 Mg Cap 100 Mg PO TID PRN Xarelto (Rivaroxaban) 20 Mg Tab 20 Mg PO DAILY 30 Days Levothyroxine (Levothyroxine Sodium) 25 Mcg Tab 25 Mcg PO DAILY Review of Systems General / Constitutional: Positive: Fever, Chills Eyes: No: Photophobia, Drainage HENT: Positive: Rhinitis, Congestion, No: Ear Discharge Cardiovascular: No: Chest Pain or Discomfort, Palpitations Respiratory: Positive: Cough Gastrointestinal: No: Nausea, Vomiting Genitourinary: No: Urgency, Frequency Musculoskeletal: No: Myalgias, Arthralgias Skin: No Rash, No Itching Neurologic: No: Weakness Hematologic/Lymphatic: No: Easy Bruising Physical Exam Narrative GENERAL: Well-developed female SKIN: Warm and dry. HEAD: Atraumatic. Normocephalic. EYES: Pupils equal and round. No scleral icterus. No injection or drainage. ENT: No nasal bleeding, there is some discharge from the nose. Mucous membranes pink and moist. There is tenderness over the frontal and maxillary sinuses bilaterally NECK: Trachea midline. No JVD. There is bilateral anterior cervical adenopathy CARDIOVASCULAR: Regular rate and rhythm. No murmur appreciated. RESPIRATORY: No accessory muscle use. Clear to auscultation. Breath sounds equal bilaterally. GASTROINTESTINAL: Abdomen soft, non-tender, nondistended. Hepatic and splenic margins not palpable. MUSCULOSKELETAL: No obvious deformities. No clubbing. No cyanosis. No edema. NEUROLOGICAL: Awake and alert. No obvious cranial nerve deficits. Motor grossly within normal limits. Normal speech. PSYCHIATRIC: Appropriate mood and affect; insight and judgment normal. Data Data Last Documented VS Vital Signs Date Time Temp Pulse Resp B/P Pulse Ox O2 Delivery O2 Flow Rate FiO2 02/04/17 22:55 98.6 72 18 122/89 97 [facility] Medical Decision Making Medical Screen Exam Complete: Yes Emergency Medical Condition: Yes Medical Record Reviewed: Yes Differential Diagnosis Differential includes URI, viral syndrome, sinusitis Narrative Course Patient be treated for sinusitis with amoxicillin. Diagnosis Primary Impression: Acute sinusitis Qualified Code: J01.00 - Acute maxillary sinusitis, recurrence not specified Scripts Amoxicillin 500 Mg Vsy560 Mg PO TID 10 Days Ref 0 Prov:Tunde Bradshaw MD 02/04/17 Disposition: 01 DISCHARGE HOME Condition: Stable Tunde Bradshaw MD Feb 04, 2017 23:47
[2017-02-04 23:55] VITALS: BP 140/71; PULSE 88; RESP 18; O2SAT 96
[2017-02-05] MEDS ORDERED: AMOXICILLIN (TRIHYDRATE) 500 MG CAP PO ONE
== END 2017-02-05 00:05 | disposition home or self-care (01) ==
LOC: PHED 22:46
DX: J01.00 Acute maxillary sinusitis, unspecified (principal); E07.9 Disorder of thyroid, unspecified; G47.30 Sleep apnea, unspecified; I25.2 Old myocardial infarction; Z95.0 Presence of cardiac pacemaker; Z86.2 Personal history of diseases of the blood and blood-forming organs and certain disorders involving the immune mechanism; Z87.39 Personal history of other diseases of the musculoskeletal system and connective tissue; Z87.09 Personal history of other diseases of the respiratory system; Z86.59 Personal history of other mental and behavioral disorders; Z86.79 Personal history of other diseases of the circulatory system; Z87.19 Personal history of other diseases of the digestive system; Z86.69 Personal history of other diseases of the nervous system and sense organs
CPT/HCPCS: 99283

== ENCOUNTER 2017-12-06 09:58 | Emergency (ER) | payer SELFPAY ==
[~2017-12-06] VITALS: Ht 165.1 cm; Wt 74.0 kg
[~2017-12-06 09:58] MED LIST changes: +AMOX500C PO
[2017-12-06 10:03] VITALS: BP 119/64; PULSE 66; RESP 16; TEMP 97.7; O2SAT 99
--- NOTE | 2017-12-06 10:37 | PD ---
HPI Chief Complaint: GI Complaint Time Seen by Provider: 10:22 Travel History International Travel<30 days: No Contact w/Intl Traveler<30days: No Traveled to known affect area: No History of Present Illness HPI This 47-year-old female has multiple complaints. She says she feels weak in general. She has been having blood per rectum. She says it is associated with a request that type fluid. It occurs independent of bowel movements. She says she's been feeling short of breath. He has a history of a clotting disorder and actually has had pulmonary embolus she has a pacemaker in place with third degree heart block. She says she's had a heart attack in the past. She does not smoke. She is currently on no medications now she is supposed to be on Coumadin for life PFSH Past Medical History Anemia: Yes Arthritis: Yes Asthma: Yes Autoimmune Disease: No Blood Disorders: Yes (PE) Anxiety: Yes Depression: No Heart Rhythm Problems: Yes Cancer: No Cardiac Catheterization: Yes Cardiovascular Problems: Yes (PACER) High Cholesterol: Yes (NEVER DIAGNOSED) Chemotherapy: No Chest Pain: Yes Congestive Heart Failure: No COPD: No Diabetes: No Diminished Hearing: No Endocrine: Yes Gastrointestinal Disorders: Yes (BLOODY STOOLS; ACID REFLUX ) GERD: Yes Genitourinary: No Headaches: Yes Hepatitis: No Hiatal Hernia: No Hypertension: No Immune Disorder: No Implanted Vascular Access Dvce: Yes (PACEMAKER) Kidney Stones: No Medical other: Yes (BLOOD CLOTTING DISORDER (MULTIPLE EPISODES) ) Musculoskeletal: Yes (LOW BACK & NECK PAIN ) Neurologic: No Psychiatric: Yes (ANXIETY) Reproductive: No Respiratory: Yes (ASTHMA) Immunizations Current: Yes Migraines: Yes Myocardial Infarction: Yes (X 2) Radiation Therapy: No Renal Failure: No Sleep Apnea: Yes Thyroid Disease: Yes Ulcer: No Influenza Vaccination: Yes ?: Not Menopausal: Yes : 8 Para: 5 Miscarriage: 0 : 3 Tubal Ligation: Yes Past Surgical History Abdominal Surgery: No AICD: No Arteriovenous Shunt: No Body Medical Devices: PACEMAKER Cardiac Surgery: Yes (PACEMAKER X 3, 3RD DEGREE HEART BLOCK, HEART SURGERYX5) Section: Yes (X 1) Ear Surgery: No Endocrine Surgery: No Eye Surgery: No Genitourinary Surgery: Yes Gynecologic Surgery: Yes () Insulin Pump: No Joint Replacement: No Neurologic Surgery: No Oral Surgery: No Pacemaker: Yes Thoracic Surgery: No Other Surgery: Yes Social History Alcohol Use: Yes (3X WK) Tobacco Use: No Substance Use: Yes ([facility] ) Allergies-Medications (Allergen,Severity, Reaction): Coded Allergies: *MDRO Multi-Drug Resistant Organism (Verified Adverse Reaction, Unknown, MRSA, 12/06/17) MRSA (thigh wound) - 06/20/05 Reported Meds & Prescriptions Reported Meds & Active Scripts Active No Active Prescriptions or Reported Medications Review of Systems General / Constitutional: No: Fever, Chills Eyes: No: Diploplia, Blurred Vision HENT: No: Headaches, Vertigo Cardiovascular: No: Chest Pain or Discomfort, Palpitations Respiratory: Positive: Shortness of Breath, No: Hemoptysis Gastrointestinal: Positive: Hematochezia, No: Nausea, Vomiting Genitourinary: No: Urgency, Frequency Skin: No Rash, No Dryness Neurologic: No: Weakness, Dizziness Hematologic/Lymphatic: No: Easy Bruising Physical Exam Narrative GENERAL: Well-developed female SKIN: Focused skin assessment warm/dry. HEAD: Atraumatic. Normocephalic. EYES: Pupils equal and round. No scleral icterus. No injection or drainage. ENT: No nasal bleeding or discharge. Mucous membranes pink and moist. NECK: Trachea midline. No JVD. CARDIOVASCULAR: Regular rate and rhythm. No murmur appreciated. RESPIRATORY: No accessory muscle use. Clear to auscultation. Breath sounds equal bilaterally. GASTROINTESTINAL: Abdomen soft, there is scattered tenderness without guarding or rigidity, nondistended. Hepatic and splenic margins not palpable. MUSCULOSKELETAL: No obvious deformities. No clubbing. No cyanosis. No edema. NEUROLOGICAL: Awake and alert. No obvious cranial nerve deficits. Motor grossly within normal limits. Normal speech. PSYCHIATRIC: Appropriate mood and affect; insight and judgment normal. Data Data Last Documented VS Vital Signs Date Time Temp Pulse Resp B/P (MAP) Pulse Ox O2 Delivery O2 Flow Rate FiO2 12/06/17 12:06 81 18 110/58 (75) 97 Room Air 12/06/17 10:03 97.7 Orders Orders Electrocardiogram (12/06/17 10:33) Complete Blood Count With Diff (12/06/17 10:33) Comprehensive Metabolic Panel (12/06/17 10:33) Troponin I (12/06/17 10:33) Prothrombin Time / Inr (Pt) (12/06/17 10:33) Act Partial Throm Time (Ptt) (12/06/17 10:33) Urinalysis - C+S If Indicated (12/06/17 10:33) Ct Pulmonary Angiogram (12/06/17 10:33) Ct Abd/Pel W Iv Contrast(Rout) (12/06/17 10:45) Iohexol 350 Inj (Omnipaque 350 Inj) (12/06/17 11:56) Labs Laboratory Tests Test 12/06/17 10:40 12/06/17 11:00 White Blood Count 5.5 TH/MM3 Red Blood Count 4.21 MIL/MM3 Hemoglobin 12.3 GM/DL Hematocrit 37.2 % Mean Corpuscular Volume 88.2 FL Mean Corpuscular Hemoglobin 29.1 PG Mean Corpuscular Hemoglobin Concent 33.0 % Red Cell Distribution Width 12.9 % Platelet Count 257 TH/MM3 Mean Platelet Volume 8.2 FL Neutrophils (%) (Auto) 56.4 % Lymphocytes (%) (Auto) 30.6 % Monocytes (%) (Auto) 7.4 % Eosinophils (%) (Auto) 5.0 % Basophils (%) (Auto) 0.6 % Neutrophils # (Auto) 3.1 TH/MM3 Lymphocytes # (Auto) 1.7 TH/MM3 Monocytes # (Auto) 0.4 TH/MM3 Eosinophils # (Auto) 0.3 TH/MM3 Basophils # (Auto) 0.0 TH/MM3 CBC Comment DIFF FINAL Differential Comment Prothrombin Time 10.4 SEC Prothromb Time International Ratio 1.0 RATIO Activated Partial Thromboplast Time 25.2 SEC Blood Urea Nitrogen 9 MG/DL Creatinine 0.62 MG/DL Random Glucose 84 MG/DL Total Protein 7.6 GM/DL Albumin 3.3 GM/DL Calcium Level 8.8 MG/DL Alkaline Phosphatase 86 U/L Aspartate Amino Transf (AST/SGOT) 26 U/L Alanine Aminotransferase (ALT/SGPT) 17 U/L Total Bilirubin 0.9 MG/DL Sodium Level 138 MEQ/L Potassium Level 4.2 MEQ/L Chloride Level 105 MEQ/L Carbon Dioxide Level 26.5 MEQ/L Anion Gap 7 MEQ/L Estimat Glomerular Filtration Rate 102 ML/MIN Troponin I 0.02 NG/ML Urine Color YELLOW Urine Turbidity CLEAR Urine pH 5.0 Urine Specific [place]un[place] 1.022 Urine Protein NEG mg/dL Urine Glucose (UA) NEG mg/dL Urine Ketones NEG mg/dL Urine Occult Blood SMALL Urine Nitrite NEG Urine Bilirubin NEG Urine Leukocyte Esterase NEG Urine RBC 0-3 /hpf Urine WBC 0-2 /hpf Urine Squamous Epithelial Cells 6-8 /hpf Urine Bacteria RARE /hpf Microscopic Urinalysis Comment CULT NOT INDICATED MDM Medical Decision Making Medical Screen Exam Complete: Yes Emergency Medical Condition: Yes Medical Record Reviewed: Yes Differential Diagnosis Differential includes pulmonary embolus, colitis, Narrative Course CTA is negative for pulmonary embolus. Patient does have guaiac-positive stool at this time I'm reluctant to initiate anticoagulants. I will treat her colitis with Bactrim. I was going to use Flagyl but patient says she has no money and Bactrim is covered under the [employer]. She is to follow-up with the [facility] Diagnosis Primary Impression: Colitis Referrals: [facility] Scripts Sulfamethoxazole-Trimethoprim (Bactrim DS) 800-160 Mg Tab 1 TAB PO BID for Infection for 10 Days, #20 TAB 0 Refills Prov: Tunde Bradshaw MD 12/06/17 Disposition: 01 DISCHARGE HOME Condition: Stable Tunde Bradshaw MD Dec 06, 2017 10:37
[2017-12-06 10:51] LABS: AUTOMATED NEUTROPHIL # 3.1 TH/MM3 (1.8-7.7); BASOPHIL % 0.6 % (0.0-2.0); EOSINOPHIL # 0.3 TH/MM3 (0-0.4); HEMATOCRIT 37.2 % (35.0-46.0); HEMOGLOBIN 12.3 GM/DL (11.6-15.3); LYMPH % 30.6 % (9.0-44.0); LYMPHOCYTE # 1.7 TH/MM3 (1.0-4.8); MEAN CELL VOLUME 88.2 FL (80.0-100.0); MEAN CORPUSCULAR HEMOGLOBIN 29.1 PG (27.0-34.0); MEAN PLATELET VOLUME 8.2 FL (7.0-11.0); MONO % 7.4 % (0.0-8.0); MONOCYTE # 0.4 TH/MM3 (0-0.9); NEUT % 56.4 % (16.0-70.0); PLATELET COUNT 257 TH/MM3 (150-450); RED BLOOD COUNT 4.21 MIL/MM3 (4.00-5.30); RED CELL DISTRIBUTION WIDTH 12.9 % (11.6-17.2); WHITE BLOOD COUNT 5.5 TH/MM3 (4.0-11.0)
[2017-12-06 11:07] LABS: BILIRUBIN, URINE NEG (NEG); BLOOD, URINE SMALL (NEG); GLUCOSE,URINE NEG (NEG); KETONE, URINE NEG (NEG); NITRITE,URINE NEG (NEG); URINE LEUKOCYTE ESTERASE NEG (NEG)
[2017-12-06 11:14] LABS: URINE COLOR YELLOW (YELLW/STRAW)
[2017-12-06 11:16] LABS: BACTERIA, URINE RARE /hpf; RBC, URINE 0-3 /hpf (0-3); WBC, URINE 0-2 /hpf (0-5)
[2017-12-06 11:20] LABS: CHLORIDE 105 MEQ/L (98-107); SODIUM (NA) 138 MEQ/L (136-145)
[2017-12-06 11:23] LABS: PROTHROMBIN TIME - PATIENT 10.4 SEC (9.8-11.6)
[2017-12-06 11:24] LABS: CALCIUM 8.8 MG/DL (8.5-10.1)
[2017-12-06 11:25] LABS: ALBUMIN 3.3 GM/DL (3.4-5.0); BLOOD UREA NITROGEN 9 MG/DL (7-18); GLUCOSE,RANDOM 84 MG/DL (74-106)
[2017-12-06 11:28] LABS: ALT (GPT) 17 U/L (10-53); AST (GOT) 26 U/L (15-37); CREATININE 0.62 MG/DL (0.50-1.00); GLOMERULAR FILTRATION RATE 102 ML/MIN (>89)
[2017-12-06 11:30] LABS: TOTAL BILIRUBIN ADULT 0.9 MG/DL (0.2-1.0); TOTAL PROTEIN 7.6 GM/DL (6.4-8.2)
[2017-12-06 11:31] LABS: ALKALINE PHOSPHATASE 86 U/L (45-117)
[2017-12-06 11:33] LABS: TROPONIN I 0.02 NG/ML (0.02-0.05)
[2017-12-06] MEDS ORDERED: IOHEXOL 350 MG/ML 10 ML VIAL (for RAD DIAG) IVCONTRAST ONE (11:56)
[2017-12-06 12:02] LABS: BICARBONATE 26.5 MEQ/L (21.0-32.0)
[2017-12-06 12:06] VITALS: BP 110/58; PULSE 81; RESP 18; O2SAT 97
--- NOTE | 2017-12-06 12:08 | RADRPT ---
EXAM DATE/TIME: 12/06/2017 11:38 [facility] COMPARISON: CT PULMONARY ANGIOGRAM, January 13, 2017, 16:17. INDICATIONS : Generalized weakness. Short of breath. Evaluate for pulmonary embolism. History of pulmonary embolism . IV CONTRAST: 100 cc Omnipaque 350 (iohexol) IV ; Cumulative dose for multiple exams. RADIATION DOSE: 14.32 CTDIvol (mGy) MEDICAL HISTORY : Cardiovascular disease. Pulmonary embolism. SURGICAL HISTORY : Pacemaker. section.Tubal ligation. ENCOUNTER: Initial ACUITY: 4 - 6 months PAIN SCALE: 0/10 LOCATION: chest TECHNIQUE: Volumetric scanning of the chest was performed using a pulmonary embolism protocol MIP images were re constructed. Using automated exposure control and adjustment of the mA and/or kV according to patien t size, radiation dose was kept as low as reasonably achievable to obtain optimal diagnostic quality images. DICOM format image data is available electronically for review and comparison. Follow-up recommendations for detected pulmonary nodules are based at a minimum on nodule size and pa tient risk factors according to Fleischner Society Guidelines. FINDINGS: PULMONARY ARTERIES: No filling defects are seen in the pulmonary arteries through the segmental level. LUNGS: Minimal nonspecific right bibasilar parenchymal changes. Pacemaker MEDIASTINUM: There is good visualization of the great vessels of the middle mediastinum. No evidence of mediastin al or hilar adenopathy/mass. MUSCULOSKELETAL: Within normal limits for patient age. MISCELLANEOUS: The visualized upper abdominal organs demonstrate no acute abnormality. Probable right subclavian vein stenosis or occlusion. CONCLUSION: Minimal nonspecific parenchymal changes right base Pacemaker No central pulmonary emboli. 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 Richard Suárez MD FACR on December 06, 2017 at 12:03 Board Certified Radiologist. This report was verified electronically.
--- NOTE | 2017-12-06 12:11 | RADRPT ---
EXAM DATE/TIME: 12/06/2017 11:38 [facility] COMPARISON: No previous studies available for comparison. INDICATIONS : Generalized weakness. Rectal bleeding. IV CONTRAST: 100 cc Omnipaque 350 (iohexol) IV ; Cumulative dose for multiple exams. ORAL CONTRAST: No oral contrast ingested. RADIATION DOSE: 18.75 CTDIvol (mGy) MEDICAL HISTORY : Cardiovascular disease. Pulmonary embolism. SURGICAL HISTORY : Pacemaker. section.Tubal ligation. ENCOUNTER: Initial ACUITY: 2 months PAIN SCALE: 0/10 LOCATION: pelvis abdomen TECHNIQUE: Volumetric scanning of the abdomen and pelvis was performed. Using automated exposure control and ad justment of the mA and/or kV according to patient size, radiation dose was kept as low as reasonably achievable to obtain optimal diagnostic quality images. DICOM format image data is available electro nically for review and comparison. FINDINGS: Minimal parenchymal changes right lung nonspecific Liver, spleen, pancreas, adrenals are unremarkable Symmetrical renal function No retroperitoneal adenopathy No abdominal inflammatory changes In the pelvis there is bowel wall thickening sigmoid colon suggesting sigmoid colitis that goes to th e rectum There is no ascites. There is no adenopathy. Uterus and adnexa regions are unremarkable CONCLUSION: Probable colitis sigmoid colon Minimal nonspecific parenchymal changes right base Richard Suárez MD FACR on December 06, 2017 at 12:06 Board Certified Radiologist. This report was verified electronically.
[2017-12-06] MEDS ORDERED: BACT800T5 PO (12:57)
--- NOTE | 2017-12-07 15:17 | EKG ---
Date Performed: 12/06/2017 Time Performed: 10:48:30 PTAGE: 47 years EKG: ELECTRONIC ATRIAL PACEMAKER ELECTRONIC VENTRICULAR PACEMAKER ABNORMAL RHYTHM ECG PREVIOUS TRACING : 01/13/2017 20.50 Compared to prior tracing no significant change DOCTOR: Jose Miguel Webster Interpretating Date/Time 12/07/2017 15:17:15
== END 2017-12-06 13:06 | disposition home or self-care (01) ==
LOC: PHED 09:58
DX: K52.9 Noninfective gastroenteritis and colitis, unspecified (principal); I25.10 Atherosclerotic heart disease of native coronary artery without angina pectoris; I25.2 Old myocardial infarction; J45.909 Unspecified asthma, uncomplicated; K21.9 Gastro-esophageal reflux disease without esophagitis; Z86.711 Personal history of pulmonary embolism; Z95.0 Presence of cardiac pacemaker
CPT/HCPCS: 71275; 74177; 80053; 81001; 84484; 85025; 85610; 85730; 93005; 99285; Q9967